=== PATIENT | female | born 1995 | race Hispanic/Latino ===

== ENCOUNTER 2022-07-13 19:37 | Emergency (ER) | payer BC ==
--- OUTSIDE RECORDS SUMMARY | 2022-07-13 19:40 | XMS REPORT | Continuity of Care Document ---
:1995 Author Organization [facility] t Address [address] [place] [address] Care Team Providers Name Role Phone Kely Zamora Attending Clinician Unavailable Kely Zamora Admitting Clinician Unavailable Payers Payer Name Policy Type Policy Number Effective Date Expiration Date S ource Problems This patient has no known problems. Allergies, Adverse Reactions, Alerts Allergy Allergy Status Severity Reaction(s) Onset Inactive Treating Comm ents Source Name Type Date Date Clinician No Known DA Active U [facility] Allergie 05-21 [facility] [address] [place] [address] Medications This patient has no known medications. Procedures Procedure Date / Time Performed Performing Clinician Don burnham [id number] 2022-05-21 [facility] [id number] 2022-05-21 00:00[facility] [id number] 2022-05-21 00:00:00 BENA. [facility] [id number] 2022-05-21 00:00[facility]00 [facility] [id number] 2022-05-21 00:00:[address] Encounters Start End Encounter Admission Attending Care Care Encounter Source Date/Time Date/Time Type Type Clinicians Facility Department ID 2022-05-21 2022-05-22 Inpatient LESLIE Rashid OBPP [id number] [facility] 02:14:00 19:00:00 Kely 81 [facility] 2022-05-19 2022-05-19 Emergency LESLIE Rashid CHELA [id number] [facility] 07:47:00 09:44:00 Kely 28 [facility] 2022-04-06 2022-04-06 Outpatient LESLIE Frost RADI [id number] [facility] 12:48:00 12:48:00 Kely 37 [facility] Results Test Description Test Time Test Comments Results Result Comments Source HGB HCT 2022-05-21 16:07:00 Test Item Value Reference Range Interpretation Comme nts HEMOGLOBIN (test code = HGB) 11.3 g/dL 10.1-13.8 N HEMATOCRIT (test code = HCT) 34.5 % 32.5-41.8 N AG HEPATITIS B [id number] 07:57:00 Test Item Value Reference Range Interpretation Comments AG HEPATITIS B SURFACE (test code NONREACTIVE NONREACTIVE = HBSAG) AB HEPATITIS C [id number] 07:57:00 Test Item Value Reference Range Interpretation Comments AB HEPATITIS C (test code = NONREACTIVE NONREACTIVE HCVAB) SIGNAL TO CUTOFF (test code = 0.19 <0.80 N CUTOFF) AB [id number] 07:57:00 Test Item Value Reference Range Interpretation Comments AB TREPONEMA (test code = TREPAB) NONREACTIVE NONREACTIVE AB HIV 1 07:57:00 Test Item Value Reference Range Interpretation Comments AB HIV 1 2 (test NONREACTIVE NONREACTIVE Done by [facility] code = [id number]) 4th Gen HIV Ag/Ab Combo Screen COVID 19 Asymptomatic IH [id number] 06:36:00 Test Item Value Reference Range Interpretation Comments COVID 19 NEGATIVE NEGATIVE This test has b een Asymptomatic IH AG authorize d only for the (test code = detection ofpro teins from COVNONPUIAG) SARS-CoV-2, not for any other viruses orpathogens. Ne gative results should be treated as presumptive andconfirmed wi th a molecular assay , if necessary for patientmanageme nt. Negative result s do not rule out COVID- 19 andshould not b e used as the sole basis for treatment orpat ient management deci sions, including infec tion controldecision s. Negative result s should be considered i n thecontext of a patient's recent exposure s, history and thepresence of clinical signs and symptoms consis tent withCOVID-19. T his test has not been FD A cleared or approved; th e test hasbeen authori erica by FDA under an Emerge ncy Use Authorization(E UA) for use by laborato fifi certified under the CLIA thatmeet the re quirements to perform mode rate, high or waivedcomple xity tests. This estela t is authorized for use at thePoint of Car e (POC), i.e., in patien t care settingsoperati ng under a CLIA Certificat e of Waiver, Certifi sharon ofCompliance, o r Certificate of Accreditation. This test is only authori zed for the duration of thedeclaration that circumstances e xist justifying theauthorizatio n of emergency use o f in vitro diagnostic test sfor detection and/o r diagnosis of CO VID-19 under Pketqqv10 4(b)(1) of the Act, 21 U.S .C. 360bbb-3(b)(1), unless theauthorizatio n is terminated or r evoked sooner. CBC W/AUTO [id number] 06:20:00 Test Item Value Reference Range Interpretation Comments WHITE BLOOD CELL (test code = WBC) 12.9 K/mm3 6.5-12.3 H RED BLOOD CELL (test code = RBC) 4.39 M/mm3 3.51-4.69 N HEMOGLOBIN (test code = HGB) 12.8 g/dL 10.1-13.8 N HEMATOCRIT (test code = HCT) 38.9 % 32.5-41.8 N MEAN CELL VOLUME (test code = MCV) 88.6 fL 84.6-96.6 N MEAN CELL HGB (test code = MCH) 29.2 pg 27.3-33.9 N MEAN CELL HGB CONCETRATION (test 32.9 gm/dL 32.0-34.2 N code = MCHC) RED CELL DISTRIBUTION WIDTH (test 13.9 % 12.2-16.3 N code = RDW) PLATELET COUNT (test code = PLT) 213 K/mm3 134-363 N MEAN PLATELET VOLUME (test code = 11.1 fL 9.2-12.7 N MPV) NEUTROPHIL % (test code = NT%) 76.4 % 57.9-77.3 N LYMPHOCYTE % (test code = LY%) 16.7 % 14.5-29.7 N MONOCYTE % (test code = MO%) 5.7 % 3.6-10.2 N EOSINOPHIL % (test code = EO%) 0.2 % 0.0-3.0 N BASOPHIL % (test code = BA%) 0.2 % 0.1-0.9 N NEUTROPHIL # (test code = NT#) 9.8 K/mm3 LYMPHOCYTE # (test code = LY#) 2.2 K/mm3 MONOCYTE # (test code = MO#) 0.7 K/mm3 EOSINOPHIL # (test code = EO#) 0.03 K/mm3 BASOPHIL # (test code = BA#) 0.0 K/mm3 RBC MORPHOLOGY REQUIRED (test code NORMAL NORMAL = RBCM) PLATELET MORPHOLOGY REQUIRED (test NORMAL NORMAL code = PLTMR) RUPTURE OF [id number] 03:19:00 Test Item Value Reference Range Interpretation Comments RUPTURE OF MEMBRANES (test code NON-RUPTURED = ROM) - US [id number] 00:00:00 [facility] : 1995 Sex: F Patient Name: KEILA CAM Unit No: [id number] EXAMS: CPT CODE: [id number] [place] LTD [address]1641 PROCEDURE INFORMATION: Exam: US , Limited Exam date and time: 05/21/2022 3:30 AM Age: 26 years old Clinical indication: Lmp or gestational age (in weeks): 40.6; Other: Lof; ; Additional info: lof 40.6 TECHNIQUE: Imaging protocol: Real-time ultrasound of the maternal uterus with image documentation. Exam focused on the clinical indication. ADDITIONAL STUDY INFORMATION: Amniotic fluid index: LINDSAY is 22.2 cm. heart rate: 143 bpm COMPARISON: OT US FLW UP 04/06/2022 1:15 PM FINDINGS: Transabdominal images of the pelvis show a gravid uterus with a single live intrauterine gestation at 40 weeks and 6 days by biometric ultrasound measurements. JENNIFER is 05/15/2022 Gestation is cephalic in presentation. The heart rate is 143 bpm. Placenta is anterior No evidence of previa. Cervix is poorly visualized. Amniotic fluid is at upper limits of normal. Amniotic fluid index is 22.2 cm. anatomy assessment is limited. Ovaries and adnexa are grossly normal. There is no free fluid in the cul-de-sac. COMMENT: - A negative sonogram report should not delay further investigation of clinically suspicious or abnormal . - position or overlap of parts may prevent complete evaluation of the fetus. - Congenital and developmental abnormalities are not always sonographically visualized. - Repeat sonograms may be necessary depending on the clinical development during . IMPRESSION: 1. Single live IUP at 40 weeks and 6 days; heart rate at 143. The [facility] NAME: KEILA CAM Radiology Department PHYS: LEONID - Rain Hurley [address] : 1995 AGE: 26 SEX: F [place], [place] [address] LOC: Erna.CHELA PHONE #: [phone] EXAM DATE: 05/21/2022 STATUS: REG ER FAX #: [phone] RAD NO: Page 1 Signed Report (CONTINUED) Patient Name: KEILA CAM Unit No: [id number] EXAMS: CPT CODE: [id number] [place] LTD 49631 (Continued) at 0416 Reported and signed by: Vaibhav Leavitt MD CC: Kely Zamora MD; Netta Hurley MD Technologist: Shelley Ramirez RDMS Probe: Trnscrbd D/ (0416) GCD.CPS Orig Print D/T: S: 05/21/2022 (0416) The [facility] NAME: KEILA CAM Radiology Department PHYS: 0 5 - Netta Hurley [address] : 1995 AGE: 26 SEX: F [place] [address] LOC: AngelicaCHELA PHONE #: [phone] EXAM DATE: 05/21/2022 STATUS: REG ER FAX #: [phone] RAD NO: Page 2 Signed Report Patient Name: KEILA CAM Unit No: [id number] EXAMS: CPT CODE: [id number] US LTD 30677 (Continued) The [facility] NAME: KEILA CAM Radiology Department PHYS: SHEILA.05 - Netta Hurley [address] : 1995 AGE: 26 SEX: F [place] LOC: AngelicaCHELA PHONE #: [phone] EXAM DATE: 05/21/2022 STATUS: REG ER FAX #: [phone] RAD NO: Page 3 Signed Report- US PREG UT [id number] 00:00:00[facility] : 1995 Sex: F Patient Name: KEILA CAM Unit No: [id number] EXAMS: CPT CODE: [id number] US PREG UT TRANSVAGINAL [id number] INFORMATION: Exam: US After First Trimester, Transabdominal and US , Transvaginal Exam date and time: 04/06/2022 1:15 PM Age: 26 years old Clinical indication: Screening exam; Routine US, uterus; Additional info: Growth LABS AND CLINICAL REPORTS: Gestational age (Established): 34 w 3 d Estimated due date (Established): 05/15/2022 TECHNIQUE: Imaging protocol: Real-time transabdominal obstetrical ultrasound of the maternal pelvis and a second or third trimester with image documentation. Transvaginal imaging was used for better evaluation of the fetus, adnexa, and/or cervix. COMPARISON: No relevant prior studies available. FINDINGS: Gestation: Single intrauterine gestation. presentation: Cephalic presentation. Embryonic/ heart rate: 143 bpm Extra-embryonic membranes/Placenta: Anterior grade 2 placenta without placenta previa. Amniotic fluid: LINDSAY is 16.4 cm. Maximum vertical pocket is 4.7 cm. BIOMETRY: Gestational age (AUA): 34 w 0 d Estimated due date (AUA): 05/18/2022 Estimated weight: 2406 g (5 lb, 5 oz) Estimated weight percentile: 57th percentile Biparietal diameter (BPD): 8.4 cm. EGA (BPD) is 33 w 5 d. 29.0 % percentile Head circumference (HC): 30.2 cm. EGA (HC) is 33 w 4 d. 5.7 % percentile Abdominal circumference (AC): 31.1 cm. EGA (AC) is 35 w 0 d. 72.0 % percentile Humerus length (HL): 6 cm. EGA (HL) is 34 w 4 d. 68.5% percentile Femur length (FL): 6.5 cm. EGA (FL) is 33 w 4 d. 19.2 % percentile Cephalic Index (CI):0.78 HC/AC: 1.05 FL/HC: 0.21 FL/BPD: 0.77 FL/AC: 0.23 MATERNAL: Uterus: Unremarkable. Cervix: The cervix is closed and measures 2.3 cm. Right ovary/adnexa: The right ovary measures 2.5 x 1.9 x 1.7 cm. Normal contour. The [facility] NAME: KEILA CAM Radiology Department PHYS: ELVIA Crooks Kely Zamora R [address] : 1995 AGE: 26 SEX: F [place], [place] [address] LOC: Erna.RAD PHONE #: [phone] EXAM DATE: 04/06/2022 STATUS: REG CLI FAX #: [phone] RAD NO: Page 1 Signed Report (CONTINUED) Patient Name: KEILA CAM Unit No: [id number] EXAMS: CPT CODE: [id number] US PREG UT TRANSVAGINAL 93341 (Continued) Left ovary/adnexa: The left ovary measures 2.6 x 1.6 x 1.8 cm. Normal contour. Intraperitoneal space: No intraperitoneal free fluid. IMPRESSION: 1. Normal growth with estimated weight of 2406 g (57th percentile). 2. The cervix measures2.3 cm in length. at 1432 Reported and signed by: Dane Almazan MD CC: Kely Zamora MD Technologist: Maribell Sky, RDMSProbe: [id number] Trnscrbd D/ (1432) GCD.CPS Orig Print D/T: S: 04/06/2022 (1433) The [facility] NAME: KEILA CAM Radiology Department PHYS: BENСергей PerezKely johnson [address] : 1995 AGE: 26 SEX: F [place], [place] [address] LOC: Erna.RAD PHONE #: [phone] EXAM DATE: 04/06/2022 STATUS: REG CLI FAX #: [phone] RAD NO: Page 2 Signed Report Patient Name: KEILA CAM Unit No: [id number] EXAMS: CPT CODE: [id number] US PREG UT TRANSVAGINAL 58544 (Continued) The [facility] NAME: KEILA CAM Radiology Department PHYS:Kely Barron [address] : 1995 AGE: 26 SEX: [place] [address] LOC: AngelicaRAD PHONE #: [phone] EXAM DATE: 04/06/2022 STATUS: REG CLI FAX #: [phone] RAD NO: Page 3 Signed Report- US FLW [id number] 00:00:00 [facility] 1995 Sex: F Patient Name: KEILA CAM Unit No: [id number] EXAMS: CPT CODE: [id number] [place] FLW UP [address]1640 PROCEDURE INFORMATION: Exam: US After First Trimester, Transabdominal and US , Transvaginal Exam date and time: 04/06/2022 1:15 PM Age: 26 years old Clinical indication: Screening exam; Routine US, uterus; Additional info: Growth LABS AND CLINICAL REPORTS: Gestational age (Established): 34 w 3 d Estimated due date (Established): 05/15/2022 TECHNIQUE: Imaging protocol: Real-time transabdominal obstetrical ultrasound of the maternal pelvis and a second or third trimester with image documentation. Transvaginal imaging was used for better evaluation of the fetus, adnexa,and/or cervix. COMPARISON: No relevant prior studies available. FINDINGS: Gestation: Single intrauterine gestation. presentation: Cephalic presentation. Embryonic/ heart rate: 143 bpm Extra-embryonic membranes/Placenta: Anterior grade 2 placenta without placenta previa. Amniotic fluid: LINDSAY is 16.4 cm. Maximum vertical pocket is 4.7 cm. BIOMETRY: Gestational age (AUA): 34 w 0 d Estimated due date (AUA): 05/18/2022 Estimated weight: 2406 g (5 lb, 5 oz) Estimated weight percentile: 57th percentile Biparietal diameter (BPD): 8.4 cm. EGA (BPD) is 33 w 5 d. 29.0 % percentile Head circumference (HC): 30.2 cm. EGA (HC) is 33 w 4 d. 5.7 % percentile Abdominal circumference (AC): 31.1 cm. EGA (AC) is 35 w 0 d. 72.0 % percentile Humerus length (HL): 6 cm. EGA (HL) is 34 w 4 d. 68.5 % percentile Femur length (FL): 6.5 cm. EGA (FL) is 33 w 4 d. 19.2 % percentile Cephalic Index (CI): 0.78 HC/AC: 1.05 FL/HC: 0.21 FL/BPD: 0.77 FL/AC: 0.23 MATERNAL: Uterus: Unremarkable. Cervix: The cervixis closed and measures 2.3 cm. Right ovary/adnexa: The right ovary measures 2.5 x 1.9 x 1.7 cm. Normal contour. The [facility] NAME: TUTUKEILA Radiology Department PHYS: ELVIA NoahKely [address] : 1995 AGE: 26 SEX: F [place], [place] [address] LOC: F.RAD PHONE #: [phone] EXAM DATE: 04/06/2022 STATUS: REG CLI FAX #: [phone] RAD NO: Page 1 Signed Report (CONTINUED) Patient Name: KEILA CAM Unit No: [id number] EXAMS: CPT CODE:[id number] US FLW UP 42101 (Continued) Left ovary/adnexa: The left ovary measures 2.6 x 1.6x 1.8 cm. Normal contour. Intraperitoneal space: No intraperitoneal free fluid. IMPRESSION: 1. Normal growth with estimated weight of 2406 g (57th percentile). 2. The cervix measures 2.3 cmin length. at 1432 Reported and signed by: Dane Almazan MD CC: Kely Zamora MD Technologist: Maribell Sky RDMS Probe: Trnscrbd D/ (1432) GCD.CPS Orig Print D/T: S: 04/06/2022 (1432) The [facility] NAME: KEILA CAM Radiology Department PHYS: Kely Chan R [address] : 1995 AGE: 26 SEX: F [place] [address] LOC: AngelicaRAD PHONE #: [phone] EXAM DATE: 04/06/2022 STATUS: REG CLI FAX #: [phone] RAD NO: Page 2 Signed Report Patient Name: KEILA CAM Unit No: [id number] EXAMS: CPT CODE: [id number] US FLW UP 06212 (Continued) The [facility] NAME: KEILA CAM Radiology Department PHYS: MARTINAManoloKely Chan [address] : 1995 AGE: 26 SEX: F [place] [address] LOC: AngelicaRAD PHONE #: [phone] EXAM DATE: 04/06/2022 STATUS: REG CLI FAX #: [phone] RAD NO: Page 3 Signed Report
--- NOTE | 2022-07-13 20:59 | RAD REPORT ---
EXAM DESCRIPTION: US - Abdomen Exam Limited - 07/13/2022 8:50 pm CLINICAL HISTORY: ABD PAIN COMPARISON: No comparisons FINDINGS: The gallbladder demonstrates no gallstones. No pericholecystic fluid or gallbladder wall t hickening. The common bile duct is normal measuring 3 mm. The liver demonstrates no findings of intrahepatic biliary dilatation. IMPRESSION: Unremarkable examination.
[2022-07-13 21:16] LABS: Absolute Lymphocytes (CBC) 2.6 K/uL (0.7-4.9); Hematocrit 39.5 % (36.0-45.0); MCV 84.8 fL (80-100); MPV 7.7 fL (7.6-11.3); RBC Red Blood Cell Count 4.66 M/uL (3.86-4.86)
[2022-07-13 21:33] LABS: Albumin 3.7 g/dL (3.4-5.0); Bilirubin Total 0.3 mg/dL (0.2-1.0); Potassium 4.3 mmol/L (3.5-5.1); Protein, Total 7.9 g/dL (6.4-8.2)
[2022-07-13 21:46] LABS: Urine Blood Trace-intact (Negative); Urine Glucose Negative (Negative); Urine Protein Negative (Negative); Urine Specific Gravity >=1.030 (1.005-1.030); Urine pH 5.5 (5.0-7.0)
--- NOTE | 2022-07-13 21:57 | RAD REPORT ---
EXAM DESCRIPTION: CTAbdomen Pelvis W Contrast - 07/13/2022 9:51 pm CLINICAL HISTORY: Abdominal pain. abd pain COMPARISON: No comparisons TECHNIQUE: Biphasic CT imaging of the abdomen and pelvis was performed with 100 ml non-ionic IV cont rast. All CT scans are performed using dose optimization technique as appropriate and may include automated exposure control or mA/KV adjustment according to patient size. FINDINGS: The lung bases are clear. The liver, spleen, pancreas, adrenal glands and kidneys are within normal limits. No bowel obstruction, free air, free fluid or abscess. The appendix is normal. No evidence of signi ficant lymphadenopathy. No suspicious bony findings. IMPRESSION: No acute intra-abdominal or pelvic finding.
[2022-07-13] MEDS ORDERED: KETOROLAC 30 MG/ML INJ ONE (22:59)
--- NOTE | 2022-07-13 23:04 | EDPHYS ---
Physician Documentation [facility] Name: Susanna Ventura Age: 26 yrs Sex: Female : 1995 Arrival Date: 07/13/2022 Time: 19:38 Bed 20 Private MD: ED Physician Hira Crockett HPI: 07/13 23:01 This 26 yrs old Female presents to ER via Ambulatory with complaints of kb abdominal pain. 23:02 The patient presents with abdominal pain in the upper abdomen. The patient has not kb recently seen a physician. 23:02 Onset: The symptoms/episode began/occurred at 18:30. The symptoms radiate to back. kb Associated signs and symptoms: none. The symptoms are described as constant. Modifying factors: The symptoms are alleviated by nothing, the symptoms are aggravated by breathing deeply. Severity of pain: At its worst the pain was moderate in the emergency department the pain is unchanged. The patient has not experienced similar symptoms in the past. Pt reports upper abd pain that radiates to back since 1830. Denies any other symptoms. Pain worse with deep breath. 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 - Social history:: Smoking status: Patient/guardian denies using tobacco. ROS: 23:01 Constitutional: Negative for fever, chills, and weight loss. kb 23:01 Abdomen/GI: Positive for abdominal pain. 23:01 All other systems are negative. Exam: 23:01 Constitutional: This is a well developed, well nourished patient who is awake, alert, kb and in no acute distress. Head/Face: Normocephalic, atraumatic. ENT: Moist Mucous membranes Cardiovascular: Regular rate and rhythm with a normal S1 and S2. No gallops, murmurs, or rubs. No pulse deficits. Respiratory: Respirations even and unlabored. No increased work of breathing. Talking in full sentences Skin: Warm, dry with normal turgor. Normal color. MS/ Extremity: Pulses equal, no cyanosis. Neurovascular intact. Full, normal range of motion. Neuro: Awake and alert, GCS 15, oriented to person, place, time, and situation. Moves all extremities. Normal gait. Psych: Awake, alert, with orientation to person, place and time. Behavior, mood, and affect are within normal limits. 23:01 Abdomen/GI: Inspection: abdomen appears normal, Bowel sounds: normal, Palpation: soft, in all quadrants, moderate abdominal tenderness, in the right upper quadrant and left upper quadrant. Vital Signs: 19:46 Pulse 70; Resp 21; Pulse Ox 100% on R/A; Weight 102.06 kg; Height 5 ft. 2 in. (157.48 kd3 cm); Pain 10/10; 19:51 BP 128 / 81; Pulse 70; Temp 97.8(O); kd3 22:45 BP 129 / 61; Pulse 66; Resp 16 S; Pulse Ox 100% on R/A; Pain 4/10; aa9 23:33 BP 123 / 64; Pulse 62; Resp 16 S; Pulse Ox 97% on R/A; Pain 0/10; aa9 19:46 Body Mass Index 41.15 (102.06 kg, 157.48 cm) kd3 MDM: 19:52 Patient medically screened. kb 23:01 Data reviewed: vital signs, nurses notes. Data interpreted: Pulse oximetry: on room air kb is 100 %. Interpretation: normal. Counseling: I had a detailed discussion with the patient and/or guardian regarding: the historical points, exam findings, and any diagnostic results supporting the discharge/admit diagnosis, lab results, radiology results, the need for outpatient follow up, a family practitioner, a ticket collector or usher, to return to the emergency department if symptoms worsen or persist or if there are any questions or concerns that arise at home. ED course: Pt comfortable now. Will follow up with GI for continued symptoms and return for any other concerns. 07/13 20:04 Order name: CBC with Diff; Complete Time: 21:17 kb 07/13 20:04 Order name: CMP; Complete Time: 21:47 kb 07/13 20:04 Order name: Lipase; Complete Time: 21:47 kb 07/13 20:04 Order name: Abdomen Limited US; Complete Time: 21:02 kb 07/13 21:46 Order name: Urine Dipstick-Ancillary; Complete Time: 21:47 EDMS 07/13 20:04 Order name: CT Abd/Pelvis - IV Contrast Only; Complete Time: 22:00 kb 07/13 20:04 Order name: IV Saline Lock; Complete Time: 21:47 kb 07/13 20:04 Order name: Labs collected and sent; Complete Time: 21:47 kb 07/13 21:45 Order name: Urine Dipstick-Ancillary (obtain specimen); Complete Time: 21:45 mw2 07/13 21:45 Order name: Urine Test (obtain specimen); Complete Time: 21:45 mw2 Administered Medications: 23:03 Drug: Ketorolac 15 mg Route: IVP; Site: left antecubital; aa9 Disposition: 07/14 00:40 Co-signature as Attending Physician, Hira Crockett MD. rn Disposition Summary: 07/13/22 23:03 Discharge Ordered Location: Home kb Condition: Stable kb Diagnosis - Upper abdominal pain, unspecified kb Followup: kb - With: Emergency Department - When: As needed - Reason: Worsening of condition Followup: kb - With: Private Physician - When: 2 - 3 days - Reason: Recheck today's complaints, Continuance of care, Re-evaluation by your physician Discharge Instructions: - Discharge Summary Sheet kb - Abdominal Pain, Adult, [id number] kb Forms: - Medication Reconciliation Form kb - Thank You Letter kb - Antibiotic Education kb - Prescription Opioid Use kb Prescriptions: - Diclofenac Sodium 75 mg Oral tablet,delayed release (DR/EC) - take 1 tablet by ORAL route 2 times per day As needed; 30 tablet; Refills: 0, kb Product Selection Permitted Signatures: Dispatcher [employer] La Cruz, SHALA LIANEZ-Hira Saunders MD MD rn [place], MyKena mw2 Dasha Pelaez RN RN kd3 Cindy Gallagher RN RN aa9
--- NOTE | 2022-07-13 23:04 | ER ---
Nurse's Notes [facility] Name: Susanna Ventura Age: 26 yrs Sex: Female : 1995 Arrival Date: 07/13/2022 Time: 19:38 Bed 20 Private MD: Diagnosis: Upper abdominal pain, unspecified Presentation: 07/13 19:46 Chief complaint: Patient states: everything in my upper abdomen hurts and it hurts to kd3 sit and breath. I am 7 and a half weeks post . The pain started around 6:30 johnny. It feels like im being squeezed. its not sharp. Coronavirus screen: Vaccine status: Patient reports receiving the 2nd dose of the covid vaccine. Ebola Screen: No symptoms or risks identified at this time. Initial Sepsis Screen: Does the patient meet any 2 criteria? No. Patient's initial sepsis screen is negative. Does the patient have a suspected source of infection? No. Patient's initial sepsis screen is negative. Risk Assessment: Do you want to hurt yourself or someone else? Patient reports no desire to harm self or others. Onset of symptoms was July 13, 2022. 19:46 Method Of Arrival: Ambulatory kd3 19:46 Acuity: ROSIE 3 kd3 Triage Assessment: 19:49 General: Appears uncomfortable, Behavior is cooperative. Pain: Complains of pain in kd3 epigastric area. Respiratory: Reports pain with respiration Onset: The symptoms/episode began/occurred today, the patient has moderate shortness of breath. 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 - Social history:: Smoking status: Patient/guardian denies using tobacco. Screenin:50 Abuse screen: Denies threats or abuse. Denies injuries from another. Nutritional kd3 screening: No deficits noted. Tuberculosis screening: No symptoms or risk factors identified. Fall Risk None identified. Assessment: 22:52 General: Appears uncomfortable, Behavior is calm, cooperative, anxious. Pain: Complains aa9 of pain in right upper quadrant Pain currently is 4 out of 10 on a pain scale. Noted to be guarding. Neuro: Level of Consciousness is awake, alert, obeys commands, Oriented to person, place, time, situation. Cardiovascular: Denies chest pain, Rhythm is regular. Respiratory: Airway is patent Respiratory effort is even, unlabored, Breath sounds are clear bilaterally. GI: Abdomen is flat, non-distended, Abd is soft X 4 quads. 22:54 General: L AC IV SL. aa9 23:34 General: pt denies concerns, medication usage explained, pt stable, ambulated out ER aa9 with significant other. . Vital Signs: 19:46 Pulse 70; Resp 21; Pulse Ox 100% on R/A; Weight 102.06 kg; Height 5 ft. 2 in. (157.48 kd3 cm); Pain 10/10; 19:51 BP 128 / 81; Pulse 70; Temp 97.8(O); kd3 22:45 BP 129 / 61; Pulse 66; Resp 16 S; Pulse Ox 100% on R/A; Pain 4/10; aa9 23:33 BP 123 / 64; Pulse 62; Resp 16 S; Pulse Ox 97% on R/A; Pain 0/10; aa9 19:46 Body Mass Index 41.15 (102.06 kg, 157.48 cm) kd3 ED Course: 19:38 Patient arrived in ED. ja2 19:47 [facility] Ar[facility]C [facility]. kb 19:47 Hira Crockett MD is Attending Physician. kb 19:49 Triage completed. kd3 19:49 Arm band placed on right wrist. kd3 20:54 Abdomen Limited US In Process Unspecified. EDMS 21:53 CT Abd/Pelvis - IV Contrast Only In Process Unspecified. EDMS 22:49 Cindy Gallagher, RN is Primary Nurse. aa9 22:53 IV is patent. aa9 22:55 Patient has correct armband on for positive identification. Bed in low position. Side aa9 rails up X2. Warm blanket given. 23:33 No provider procedures requiring assistance completed. IV discontinued, intact, aa9 bleeding controlled, No redness/swelling at site. Pressure dressing applied. Administered Medications: 23:03 Drug: Ketorolac 15 mg Route: IVP; Site: left antecubital; aa9 Medication: 23:34 VIS not applicable for this client. aa9 Outcome: 23:03 Discharge ordered by . kb 23:34 Discharged to home via ambulance, with significant other. aa9 23:34 Condition: stable 23:34 Discharge instructions given to patient, significant other, Instructed on discharge instructions, follow up and referral plans. medication usage, Demonstrated understanding of instructions, follow-up care, medications, Prescriptions given X 1. 23:35 Patient left the ED. aa9 Signatures: Dispatcher [employer] EDMS La Arriola, EDGE RUNNER-C EDGE RUNNER-CkFrances Torres ja2 Dasha Pelaez RN RN kd3 Cindy Gallagher RN RN aa9
[2022-07-13 23:50] VITALS: TEMP 97.8
[2022-07-13 23:59] VITALS: BP 123/64; O2SAT 97
== END 2022-07-13 23:35 | disposition home or self-care (01) ==
LOC: ER 19:37
DX: R10.10 Upper abdominal pain, unspecified (principal)
CPT/HCPCS: 85025; 36415; 81003; 83690; 80053; 74177; 76705; 96374; 99283; Q9967